=== PATIENT | female | born 1970 | race Two or more races ===

== ENCOUNTER 2017-03-14 08:07 | Outpatient (CLI) | payer OTHER | END 2017-03-14 08:12 | disposition home or self-care (01) | LOC: RX STUDY 08:07 | DX: N84.0 Polyp of corpus uteri (principal); N85.6 Intrauterine synechiae ==

== ENCOUNTER → 2018-01-11 | Day surgery (SDC) | payer OTHER ==
[~2018-01-11] MED LIST: BIOTIN1 M1 PO; FOLIC ACID1 MG PO; KETO10TA2 PO; PERCOCET 5-3251 EACH PO; VIT C-ROSE HIP500 MG PO
== END | disposition home or self-care (01) ==
LOC: CIR.AMB 11:08
DX: N80.2 Endometriosis of fallopian tube (principal)